=== PATIENT | female | born 1970 | race African-American/Black ===

== ENCOUNTER 2017-10-19 12:37 | Emergency (ER) | payer SELFPAY ==
[~2017-10-19] VITALS: Ht 165.1 cm; Wt 72.6 kg
[2017-10-19] MEDS ORDERED: NKM (13:00)
[2017-10-19] MEDS ORDERED: Ketorolac 60mg Inj IM ONE (13:30)
[2017-10-19] MEDS ORDERED: Cyclobenzaprine 10mg Tab ORAL ONE (13:30)
[2017-10-19] MEDS ORDERED: IBUPROFEN600 MG ORAL (13:53)
[2017-10-19] MEDS ORDERED: ROBAXIN-750750 MG PO (13:53)
[2017-10-19 14:01] VITALS: BP 119/77
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
== END 2017-10-19 14:01 | disposition home or self-care (01) ==
LOC: EMR 13:15
DX: T14.8XXA Other injury of unspecified body region, initial encounter (principal); M54.9 Dorsalgia, unspecified; M54.2 Cervicalgia; V43.62XA Car passenger injured in collision with other type car in traffic accident, initial encounter; Y92.410 Unspecified street and highway as the place of occurrence of the external cause
CPT/HCPCS: 96372; 99284

== ENCOUNTER 2020-07-05 14:32 | Emergency (ER) | payer OTHER ==
[~2020-07-05] VITALS: Ht 165.1 cm; Wt 63.5 kg
[~2020-07-05 14:32] MED LIST: IBUPROFEN600 MG ORAL; NKM; ROBAXIN-750750 MG PO
[2020-07-05 15:20] VITALS: BP 130/77
[2020-07-05] MEDS ORDERED: Augmentin 875mg Tab ORAL ONE (15:30)
[2020-07-05] MEDS ORDERED: Ketorolac 30mg Inj IM ONE (15:30)
--- NOTE | 2020-07-05 15:46 | Emergency Room Report ---
History of Present Illness General Chief Complaint: Pain Source: Patient Present Illness HPI 49-year-old female with no symptom past medical history here complaining of swelling and pain in dorsum of right hand after she noticed a small scratch/insect bite 2 days ago. Denies any fall or injury. Denies any fever and chills, tingling numbness. Denies any chest pain shortness of breath. Denies any nausea vomiting diarrhea. Has not taken medication for symptom relief. Obvious swelling noted on dorsum of right hand patient has range of motion no bony tenderness noted. Slightly warm to touch. Denies . 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 Patient History Past Medical History: see triage record Past Surgical History: none Pertinent Family History: none Last Menstrual Period: A YEAR AGO Now: No Immunizations: UTD Reviewed Nursing Documentation: PMH: Agreed; PSxH: Agreed Nursing Documentation-PMH Past Medical History: No Stated History Review of Systems All Other Systems: negative except mentioned in HPI Physical Exam Vital Signs Date Time Temp Pulse Resp B/P (MAP) Pulse Ox O2 Delivery O2 Flow Rate FiO2 07/05/20 15:15 98.2 61 16 130/77 (94) 96 Room Air Sp02 EP Interpretation: reviewed, normal General Appearance: no apparent distress, alert, GCS 15, non-toxic Head: normocephalic, atraumatic Eyes: bilateral eye normal inspection, bilateral eye PERRL ENT: hearing grossly normal, normal pharynx, no angioedema, normal voice Neck: full range of motion, supple/symm/no masses Respiratory: chest non-tender, lungs clear, normal breath sounds, speaking full sentences Cardiovascular #1: regular rate, rhythm, no edema Cardiovascular #2: 2+ carotid (R), 2+ carotid (L), 2+ radial (R), 2+ radial (L), 2+ dorsalis pedis (R), 2+ dorsalis pedis (L) Gastrointestinal: normal bowel sounds, non tender, soft, non-distended, no guarding, no rebound Rectal: deferred Musculoskeletal: back normal, non-tender, swelling - Dorsum of right hand Neurologic: alert, motor strength/tone normal, oriented x3, sensory intact, responsive, speech normal Psychiatric: judgement/insight normal, memory normal, mood/affect normal, no suicidal/homicidal ideation Skin: other - Cellulitis right hand Lymphatic: no adenopathy Medical Decision Making PA Attestation Diagnosis and treatment plans were reviewed and discussed with my supervising physician Dr. Garcia Diagnostic Impression: Primary Impression: Cellulitis of hand Additional Impression: Infected insect bite ER Course 49-year-old female with no symptom past medical history here complaining of swelling and pain in dorsum of right hand after she noticed a small scratch/insect bite 2 days ago. Denies any fall or injury. Denies any fever and chills, tingling numbness. Denies any chest pain shortness of breath. Denies any nausea vomiting diarrhea. Has not taken medication for symptom re lief. Obvious swelling noted on dorsum of right hand patient has range of motion no bony tenderness noted. Slightly warm to touch. Denies . Ddx considered but are not limited to : Cellulitis, infected insect bite, superficial infection, abscess Vital signs: are WNL, pt. is afebrile H&PE are most consistent with: Cellulitis due to infected insect bite ORDERS:, Augmentin, prednisone, Motrin, hand x-ray ED INTERVENTIONS: Toradol, dexamethasone IM, Augmentin p.o. DISCHARGE: At this time pt. is stable for d/c to home. Will provide printed patient care instructions, and any necessary prescriptions. Care plan and follow up instructions have been discussed with the patient prior to discharge. Patient take medication as directed, follow primary care provider, if worsening symptoms return to the emergency room Other X-Ray Diagnostic Results Other X-Ray Diagnostic Results : X-Ray ordered: Right hand # of Views/Limited Vs Complete: 3 View Indication: Swelling EP Interpretation: Yes YODIT Xray: Interpretation reviewed, by supervising MD, and agrees with findings. Interpretation: no dislocation, no fractures Impression: No acute disease Electronically Signed by: Darrell Cordero PA-C Last Vital Signs Date Time Temp Pulse Resp B/P (MAP) Pulse Ox O2 Delivery O2 Flow Rate FiO2 20 15:20 98.2 61 16 130/77 96 Room Air Disposition: HOME, SELF-CARE Condition: Stable Scripts Ibuprofen* (MOTRIN*) 600 Mg Tablet 600 MG ORAL Q6H PRN for For Pain, #30 TAB 0 Refills Prov: Darrell Coleman 07/05/20 Prednisone* (PREDNISONE*) 20 Mg Tablet 40 MG ORAL DAILY for 5 Days, #10 TAB Prov: Darrell Coleman 07/05/20 Amoxicillin/Potassium Clav 875-125* (AUGMENTIN 875-125 TABLET*) 1 Each Tablet 1 TAB ORAL TWICE A DAY for 7 Days, #14 TAB Prov: Darrell Coleman 07/05/20 Patient Instructions: Cellulitis, [id number] Additional Instructions: Take medication as directed, follow primary care provider, if worsening symptoms return to the emergency room Darrell Coleman Jul 05, 2020 15:46
[2020-07-05] MEDS ORDERED: AUGMENTIN 875-1 EAC1 ORAL (15:50)
[2020-07-05] MEDS ORDERED: IBUPROFEN600 M1 ORAL (15:50)
[2020-07-05] MEDS ORDERED: PREDNISONE20 MG ORAL (15:50)
[2020-07-05 16:10] VITALS: BP 125/78
--- NOTE | 2020-07-05 17:24 | Diagnostic Imaging Report ---
Indication: Pain, swelling Technique: 3 views right hand Comparison: none Findings: No acute fractures. No dislocations. The joint spaces are preserved. There is dorsal soft tissue swelling. No radiopaque foreign body Impression: Dorsal soft tissue swelling No acute bony trauma
== END 2020-07-05 16:10 | disposition home or self-care (01) ==
LOC: EMR 15:40
DX: L03.113 Cellulitis of right upper limb (principal); S60.561A Insect bite (nonvenomous) of right hand, initial encounter; L08.9 Local infection of the skin and subcutaneous tissue, unspecified; W57.XXXA Bitten or stung by nonvenomous insect and other nonvenomous arthropods, initial encounter; Y92.9 Unspecified place or not applicable
CPT/HCPCS: 73130; 96372; J1100; J1885; Z7502; 99283